=== PATIENT | male | born 1980 | race Caucasian/White ===

== ENCOUNTER 2024-05-07 06:23 | Outpatient (CLI) | payer BC, SELFPAY ==
--- NOTE | 2024-05-07 07:47 | P.ANES_ITS ---
Anesthesia Charges Start Date/Time Anesthesia Start Date: 05/07/24 Anesthesia Start Time: 07:23 Stop Date/Time Anesthesia Stop Date: 05/07/24 Anesthesia Stop Time: 07:45 Coding CPT Codes CPT Codes: SD LWR INTST NDME NOS - [id number] ([id number]) P1 - NORMAL HEALTHY PATIENT, QK - FISH HATCHERY INSPECTOR 2-4 CNCRNT ANES PROC, QX - SHEEPSKIN PICKLER SVC W/ MED DIRECTION
--- NOTE | 2024-05-07 07:47 | W.ANESCHARGE ---
Anesthesia Charges Start Date/Time Anesthesia Start Date: 05/07/24 Anesthesia Start Time: 07:23 Stop Date/Time Anesthesia Stop Date: 05/07/24 Anesthesia Stop Time: 07:45 Coding CPT Codes CPT Codes: SD LWR INTST NDMN NOS - [id number] ([id number]) P1 - NORMAL HEALTHY PATIENT, QK - CARRIAGE RIDER 2-4 CNCRNT ANES PROC, QX - MEDICAL I D SALES SVC W/ MED DIRECTION
--- NOTE | 2024-05-07 08:40 | P.ANES_ITS ---
Anesthesia Charges Start Date/Time Anesthesia Start Date: 05/07/24 Anesthesia Start Time: 07:23 Stop Date/Time Anesthesia Stop Date: 05/07/24 Anesthesia Stop Time: 07:45 Coding CPT Codes CPT Codes: SD LWR INTST NDSC NOS - [id number] ([id number]) QK - COMIC ARTIST 2-4 CNCRNT ANES PROC, QX - ADMINISTRATIVE ASST SVC W/ MED DIRECTION, P1 - NORMAL HEALTHY PATIENT
--- NOTE | 2024-05-07 08:40 | W.ANESCHARGE ---
Anesthesia Charges Start Date/Time Anesthesia Start Date: 05/07/24 Anesthesia Start Time: 07:23 Stop Date/Time Anesthesia Stop Date: 05/07/24 Anesthesia Stop Time: 07:45 Coding CPT Codes CPT Codes: SD LWR INTST NDSC NOS - [id number] ([id number]) QK - BIAS MACHINE OPERATOR 2-4 CNCRNT ANES PROC, QX - FAMILY LIVING EDUCATOR SVC W/ MED DIRECTION, P1 - NORMAL HEALTHY PATIENT
== END 2024-05-07 06:24 | disposition home or self-care (01) ==
PROVIDERS: PCP Family Medicine; Visit Provider Internal Medicine
DX: Z12.11 Encounter for screening for malignant neoplasm of colon (principal); D12.5 Benign neoplasm of sigmoid colon
CPT/HCPCS: 00811; 45380; 88305; J2704